=== PATIENT | male | born 1950 | race Caucasian/White ===

== ENCOUNTER 2017-11-13 20:55 | Emergency (ER) | payer BC ==
[2017-11-13] MEDS ORDERED: DIPRIVAN 200 MG/20 ML IV ONE (20:56)
[2017-11-13] MEDS: Sodium Chloride 0.9% 1000 ML 1,000 ML IV STA (21:00)
[2017-11-13] MEDS ORDERED: VERSED 5 MG/5 ML ONE ×2 (21:07→22:35)
[2017-11-13 21:10] LABS: BASOPHIL % 0.3 % (0.0-0.4); Basophil (Absolute #) 0.05 (0-0.4); Eosinophil (Absolute #) 0.59 (0-0.5); Granulocyte Absolute (ANC) 7.16 (1.4-6.9); Granulocytes % 49.1 % (36.0-66.0); Hematocrit 44.8 % (42-50); Hemoglobin 15.1 gm/dl (12.5-18.0); Lymphocyte (Absolute #) 5.82 (1.0-4.6); Lymphocytes % 39.9 % (24.0-44.0); Mean Cell Volume 100.7 fl (78-100); Mean Corpuscular Hemoglobin 33.9 pg (26-32); Mean Corpuscular Hgb Concent. 33.7 g/dl (32-36); Mean Platelet Volume 11.6 fl (6-9.5); Monocyte (Absolute #) 0.98 (0.0-1.3); Monocytes % 6.7 % (0.0-12.0); Platelet Count 150 K/mm3 (150-450); Red Blood Count 4.45 M/mm3 (4.1-5.6); Red Cell Distribution Width 13.1 % (11.5-14.0); White Blood Count 14.6 K/mm3 (4.0-10.5)
[2017-11-13] MEDS ORDERED: Sodium Chloride 0.9% 1000 ML 1,000 ML ONE ×3 (21:16→21:51)
[2017-11-13] MEDS ORDERED: SUBLIMAZE 100 MCG/2 ML ONE (21:22)
[2017-11-13] MEDS: SUBLIMAZE 100 MCG/2 ML IV ONE (21:25)
[2017-11-13] MEDS: VERSED 5 MG/5 ML IV ONE ×2 (21:30→22:45)
[2017-11-13] MEDS: Propofol 1000 mg/100 ml Bottle 100 ML IV PRN (21:40)
[2017-11-13 21:42] LABS: A-aADO2 220; ABG HEMOGLOBIN 13.9; ABG POTASSIUM 3.4 (3.5-5.1); ARTERIAL BLD GAS O2 SATURATION 100.1 % (95-100); ARTERIAL BLOOD GAS BASE EXCESS -6.8 (-2.0-2.0); ARTERIAL BLOOD GAS FIO2 100 %; ARTERIAL BLOOD GAS PCO2 54 mmHg (35-45); ARTERIAL BLOOD GAS PO2 426 mmHg (75-100); ARTERIAL BLOOD GAS VENT MODE A/C; ARTERIAL BLOOD GAS pH 7.21 (7.35-7.45); HCO3- 21.6 (22-28); HGB O2 SAT 92.6 g/dF (94-100); Methhemoglobin 1.5 % (1.4-1.5); paO2 pAO1 0.66
[2017-11-13 21:43] LABS: ABG SITE LEFT RADIAL; ALLEN TEST OK? YES
[2017-11-13 21:46] LABS: Lactic Acid 3.8 (0.4-2.0)
[2017-11-13 21:57] LABS: INR 0.98 (0.8-3.0)
[2017-11-13 22:06] LABS: ALBUMIN 3.6 g/dL (3.5-5.0); ALKALINE PHOSPHATASE 68 U/L (38-126); ANION GAP 17.4 MEQ/L (5-15); BLOOD UREA NITROGEN 17 mg/dL (9-20); CHLORIDE 105 mmol/L (98-107); CK-Creatinine Phosphokinase 70 U/L (55-170); Calcium 7.9 mg/dL (8.4-10.2); Carbon Dioxide 22 mmol/L (22-30); Creatinine 1 0.65 mg/dL (0.66-1.25); Glucose 141 mg/dL (74-106); Potassium 3.6 mmol/L (3.5-5.1); SGOT/AST 69 U/L (17-59); SGPT/ALT 54 U/L (0-50); SODIUM 141 mmol/L (137-145); Total Protein 5.9 g/dL (6.3-8.2)
--- NOTE | 2017-11-13 22:26 | ERPHSYRPT ---
- History of Present Illness Time Seen by Provider: 11/13/17 21:00 Source: EMS Exam Limitations: clinical condition Physician History: 67 y/o male with history of seizure brought in by ambulance post cardiac arrest. Pt was in a restaurant when he choked on a piece of food, had tonic clonic seizure, passed out and become pulseless. CPR was performed and upon arrival by EMS, pulse was regained after tube placement. In the ER, patient, arrived moving all extremities and starting to wake up. Pt was started on propofol drip which has sedated the patient. The patient has remained hemodynamically stable and has not had any seizure activity. Timing/Duration: today Activities at Onset: other (eating food) Nitro Today/Relief: no nitro taken today Aspirin Treatment Today: no aspirin today Associated Symptoms: seizure - Review of Systems Constitutional: No Fever, No Chills Eyes: No Symptoms Ears, Nose, & Throat: No Symptoms Respiratory: No Cough, No Dyspnea Cardiac: Other (post cardiac arrest), No Chest Pain, No Edema, No Syncope Abdominal/Gastrointestinal: No Abdominal Pain, No Nausea, No Vomiting, No Diarrhea Genitourinary Symptoms: No Dysuria Musculoskeletal: No Back Pain, No Neck Pain Skin: No Rash Neurological: Seizure, No Dizziness, No Focal Weakness, No Sensory Changes Psychological: No Symptoms Endocrine: No Symptoms All Other Systems: Reviewed and Negative Significant Family History:  - Physical Exam General Appearance: alert, lethargy, other (sedated) Eye Exam: PERRL/EOMI, eyes nml inspection Ears, Nose, Throat Exam: normal ENT inspection, moist mucous membranes Neck Exam: normal inspection, non-tender, supple Respiratory Exam: normal breath sounds, No respiratory distress Cardiovascular Exam: regular rate/rhythm, normal heart sounds, tachycardia, No edema Gastrointestinal/Abdomen Exam: soft, No tenderness, No mass Back Exam: normal inspection, No CVA tenderness, No vertebral tenderness Extremity Exam: normal inspection, normal range of motion Neurologic Exam: other (sedated and no distress), No motor deficits Skin Exam: normal color, warm, dry Lymphatic Exam: No adenopathy - Course Nursing assessment & vital signs reviewed: Yes EKG Interpreted by Me: RATE, NORMAL AXIS, NORMAL INTERVALS, NORMAL QRS, NORMAL ST-T Ordered Tests: Active Orders 24 hr Category Date Time Status Catheter-[place] STAT Care 11/13/17 20:57 Active EKG-ER Only STAT Care 11/13/17 20:57 Active IV Insertion STAT Care 11/13/17 20:57 Active CHEST 1 VIEW (PORTABLE) Routine Exams 11/13/17 Ordered CHEST 1 VIEW (PORTABLE) Stat Exams 11/13/17 20:58 Taken ARTERIAL BLOOD GASES Urgent Lab 11/13/17 21:22 Completed BLOOD CULTURE Stat Lab 11/13/17 21:30 Received CBC W DIFF Stat Lab 11/13/17 19:00 Completed CK-Creatinine Phosphokinase Stat Lab 11/13/17 21:00 Completed CMP Stat Lab 11/13/17 21:00 Completed Lactic Acid Stat Lab 11/13/17 21:22 Results MAGNESIUM Stat Lab 11/13/17 21:00 Completed Manual Differential NC Stat Lab 11/13/17 19:00 Completed PROTIME WITH INR Stat Lab 11/13/17 21:30 Completed PTT Stat Lab 11/13/17 21:30 Completed TROPONIN Q3H Lab 11/13/17 21:00 Completed TROPONIN Q3H Lab 11/14/17 00:00 Ordered TROPONIN Q3H Lab 11/14/17 03:00 Ordered TROPONIN Q3H Lab 11/14/17 06:00 Ordered TROPONIN Q3H Lab 11/14/17 09:00 Ordered Medication Summary Generic Name Dose Route Start Last Admin Trade Name Freq PRN Reason Stop Dose Admin Propofol 100 mls @ 0 mls/hr 11/13/17 20:59 Propofol 1000 Mg/100 Ml Bottle IV 12/13/17 20:58 .Q0M PRN AGITATION Protocol 5 MCG/KG/MIN Midazolam HCl 50 mg/ Sodium 250 mls @ 10 mls/hr 11/13/17 22:49 Chloride IV 12/13/17 22:48 .Q24H PRN SEDATION Protocol 2 MG/HR Discontinued Medications Generic Name Dose Route Start Last Admin Trade Name Freq PRN Reason Stop Dose Admin Fentanyl Citrate 100 mcg 11/13/17 21:20 Sublimaze 100 Mcg/2 Ml IV 11/13/17 21:21 STAT ONE Fentanyl Citrate Confirm 11/13/17 21:22 Sublimaze 100 Mcg/2 Ml Administered 11/13/17 21:23 Dose 100 mcg .ROUTE .STK-MED ONE Sodium Chloride 1,000 mls @ 999 mls/hr 11/13/17 20:57 Sodium Chloride 0.9% 1000 Ml IV 11/13/17 21:57 .Q1H1M STA Sodium Chloride Confirm 11/13/17 21:16 Sodium Chloride 0.9% 1000 Ml Administered 11/13/17 21:17 Dose 1,000 mls @ ud .ROUTE .STK-MED ONE Sodium Chloride Confirm 11/13/17 21:49 Sodium Chloride 0.9% 1000 Ml Administered 11/13/17 21:50 Dose 1,000 mls @ ud .ROUTE .STK-MED ONE Sodium Chloride Confirm 11/13/17 21:51 Sodium Chloride 0.9% 1000 Ml Administered 11/13/17 21:52 Dose 1,000 mls @ ud .ROUTE .STK-MED ONE Sodium Chloride Confirm 11/13/17 22:48 Sodium Chloride 0.9% 250 Ml Administered 11/13/17 22:49 Dose 250 mls @ ud IV .STK-MED ONE Midazolam HCl 5 mg 11/13/17 21:04 Versed 5 Mg/5 Ml IV 11/13/17 21:05 STAT ONE Midazolam HCl Confirm 11/13/17 21:07 Versed 5 Mg/5 Ml Administered 11/13/17 21:08 Dose 5 mg .ROUTE .STK-MED ONE Midazolam HCl 5 mg 11/13/17 22:32 Versed 5 Mg/5 Ml IV 11/13/17 22:33 STAT ONE Midazolam HCl Confirm 11/13/17 22:35 Versed 5 Mg/5 Ml Administered 11/13/17 22:36 Dose 5 mg .ROUTE .STK-MED ONE Midazolam HCl Confirm 11/13/17 22:48 Versed 50 Mg/ 10 Ml Mdv Administered 11/13/17 22:49 Dose 50 mg .ROUTE .STK-MED ONE Lab/Rad Data: Laboratory Result Diagrams 11/13/17 19:00 11/13/17 21:00 Laboratory Results 11/13/17 11/13/17 11/13/17 Range/Units 21:30 21:30 21:22 WBC (4.0-10.5) K/mm3 RBC (4.1-5.6) M/mm3 Hgb (12.5-18.0) gm/dl Hct (42-50) % MCV (78-100) fl MCH (26-32) pg MCHC (32-36) g/dl RDW (11.5-14.0) % Plt Count (150-450) K/mm3 MPV (6-9.5) fl Gran % (36.0-66.0) % Eos # (Auto) (0-0.5) Absolute Lymphs (auto) (1.0-4.6) Absolute Monos (auto) (0.0-1.3) Lymphocytes % (24.0-44.0) % Monocytes % (0.0-12.0) % Eosinophils % (0.00-5.0) % Basophils % (0.0-0.4) % Absolute Granulocytes (1.4-6.9) Basophils # (0-0.4) PT 11.4 (8.83-12.87) SECONDS INR 0.98 (0.8-3.0) APTT 25.0 (24.1-36.1) SECONDS Puncture Site LEFT RADIAL pCO2 54 H (35-45) mmHg pO2 426 H* (75-100) mmHg Base Excess -6.8 L (-2.0-2.0) O2 Saturation 92.6 L (94-100) g/dF ABG pH 7.21 L* (7.35-7.45) ABG HCO3 21.6 L (22-28) ABG O2 Sat (Measured) 100.1 H (95-100) % Wilver Test YES A-a Gradient 220 a/A Ratio 0.66 Hemoglobin 13.9 Carboxyhemoglobin 6.0 (0.0-6.9) % THgb Methemoglobin 1.5 (1.4-1.5) % Temperature 37.0 C POC O2 Flow Rate 100 % Vent Mode A/C Sodium (137-145) mmol/L Potassium 3.4 L (3.5-5.1) mmol/L Chloride (98-107) mmol/L Carbon Dioxide (22-30) mmol/L Anion Gap (5-15) MEQ/L BUN (9-20) mg/dL Creatinine (0.66-1.25) mg/dL Estimated GFR ML/MIN Glucose (74-106) mg/dL Lactic Acid (0.4-2.0) Calcium (8.4-10.2) mg/dL Magnesium (1.6-2.3) mg/dL Total Bilirubin (0.2-1.3) mg/dL AST (17-59) U/L ALT (0-50) U/L Alkaline Phosphatase (38-126) U/L Creatine Kinase (55-170) U/L Troponin I (0.000-0.034) ng/mL Serum Total Protein (6.3-8.2) g/dL Albumin (3.5-5.0) g/dL Phenytoin < 3.0 L (10-20) ug/mL 11/13/17 11/13/17 11/13/17 Range/Units 21:22 21:00 21:00 WBC (4.0-10.5) K/mm3 RBC (4.1-5.6) M/mm3 Hgb (12.5-18.0) gm/dl Hct (42-50) % MCV (78-100) fl MCH (26-32) pg MCHC (32-36) g/dl RDW (11.5-14.0) % Plt Count (150-450) K/mm3 MPV (6-9.5) fl Gran % (36.0-66.0) % Eos # (Auto) (0-0.5) Absolute Lymphs (auto) (1.0-4.6) Absolute Monos (auto) (0.0-1.3) Lymphocytes % (24.0-44.0) % Monocytes % (0.0-12.0) % Eosinophils % (0.00-5.0) % Basophils % (0.0-0.4) % Absolute Granulocytes (1.4-6.9) Basophils # (0-0.4) PT (8.83-12.87) SECONDS INR (0.8-3.0) APTT (24.1-36.1) SECONDS Puncture Site pCO2 (35-45) mmHg pO2 (75-100) mmHg Base Excess (-2.0-2.0) O2 Saturation (94-100) g/dF ABG pH (7.35-7.45) ABG HCO3 (22-28) ABG O2 Sat (Measured) (95-100) % Wilver Test A-a Gradient a/A Ratio Hemoglobin Carboxyhemoglobin (0.0-6.9) % THgb Methemoglobin (1.4-1.5) % Temperature C POC O2 Flow Rate % Vent Mode Sodium 141 (137-145) mmol/L Potassium 3.6 (3.5-5.1) mmol/L Chloride 105 (98-107) mmol/L Carbon Dioxide 22 (22-30) mmol/L Anion Gap 17.4 H (5-15) MEQ/L BUN 17 (9-20) mg/dL Creatinine 0.65 L (0.66-1.25) mg/dL Estimated GFR > 60.0 ML/MIN Glucose 141 H (74-106) mg/dL Lactic Acid 3.8 H (0.4-2.0) Calcium 7.9 L (8.4-10.2) mg/dL Magnesium 1.9 (1.6-2.3) mg/dL Total Bilirubin 0.20 (0.2-1.3) mg/dL AST 69 H (17-59) U/L ALT 54 H (0-50) U/L Alkaline Phosphatase 68 (38-126) U/L Creatine Kinase 70 (55-170) U/L Troponin I 0.014 (0.000-0.034) ng/mL Serum Total Protein 5.9 L (6.3-8.2) g/dL Albumin 3.6 (3.5-5.0) g/dL Phenytoin (10-20) ug/mL 11/13/17 Range/Units 19:00 WBC 14.6 H (4.0-10.5) K/mm3 RBC 4.45 (4.1-5.6) M/mm3 Hgb 15.1 (12.5-18.0) gm/dl Hct 44.8 (42-50) % MCV 100.7 H (78-100) fl MCH 33.9 H (26-32) pg MCHC 33.7 (32-36) g/dl RDW 13.1 (11.5-14.0) % Plt Count 150 (150-450) K/mm3 MPV 11.6 H (6-9.5) fl Gran % 49.1 (36.0-66.0) % Eos # (Auto) 0.59 H (0-0.5) Absolute Lymphs (auto) 5.82 H (1.0-4.6) Absolute Monos (auto) 0.98 (0.0-1.3) Lymphocytes % 39.9 (24.0-44.0) % Monocytes % 6.7 (0.0-12.0) % Eosinophils % 4.0 (0.00-5.0) % Basophils % 0.3 (0.0-0.4) % Absolute Granulocytes 7.16 H (1.4-6.9) Basophils # 0.05 (0-0.4) PT (8.83-12.87) SECONDS INR (0.8-3.0) APTT (24.1-36.1) SECONDS Puncture Site pCO2 (35-45) mmHg pO2 (75-100) mmHg Base Excess (-2.0-2.0) O2 Saturation (94-100) g/dF ABG pH (7.35-7.45) ABG HCO3 (22-28) ABG O2 Sat (Measured) (95-100) % Wilver Test A-a Gradient a/A Ratio Hemoglobin Carboxyhemoglobin (0.0-6.9) % THgb Methemoglobin (1.4-1.5) % Temperature C POC O2 Flow Rate % Vent Mode Sodium (137-145) mmol/L Potassium (3.5-5.1) mmol/L Chloride (98-107) mmol/L Carbon Dioxide (22-30) mmol/L Anion Gap (5-15) MEQ/L BUN (9-20) mg/dL Creatinine (0.66-1.25) mg/dL Estimated GFR ML/MIN Glucose (74-106) mg/dL Lactic Acid (0.4-2.0) Calcium (8.4-10.2) mg/dL Magnesium (1.6-2.3) mg/dL Total Bilirubin (0.2-1.3) mg/dL AST (17-59) U/L ALT (0-50) U/L Alkaline Phosphatase (38-126) U/L Creatine Kinase (55-170) U/L Troponin I (0.000-0.034) ng/mL Serum Total Protein (6.3-8.2) g/dL Albumin (3.5-5.0) g/dL Phenytoin (10-20) ug/mL - Progress Progress: improved Progress Note: 11/13/17 22:26 Pt has been sedated with propofol drip. The blood gas shows a pH of 7.21 with a pO2 of 426. The FiO2 was reduced from 100% to 60%. The patient has remained and is ready for transfer. The patient has been accepted by hospitalist, Dr You and will go to the ER. 11/13/17 22:59 Just found out that the patient was taken off of coumadin for a DVT. Pt has a dilantin level that is subtherapeutic. Pt will be loaded with 1 gram of dilantin prior to being discharged. Pt was also started on versed drip along with the propofol drip. - Departure Time of Disposition: 22:29 Departure Disposition: Transfer Clinical Impression: Cardiac arrest, Seizure Choking due to food (regurgitated) Qualifiers: Encounter type: initial encounter Qualified Code(s): T17.320A - Food in larynx causing asphyxiation, initial encounter Condition: Critical Critical Care Time: Yes Critical Care Time(excluding separately billable procedures): 75-104 minutes Referrals: WILIAM GAXIOLA [Primary Care Provider] -
[2017-11-13] MEDS ORDERED: Sodium Chloride 0.9% 250 ML 250 ML IV ONE (22:48)
[2017-11-13] MEDS ORDERED: Versed 50 MG/ 10 Ml MDV ONE (22:48)
[2017-11-13] MEDS: Versed 50 MG/ 10 Ml MDV*** 50 MG in Sodium Chloride 0.9% 250 ML 240 ML IV PRN (22:58)
[2017-11-13] MEDS ORDERED: DILANTIN IV 250 MG/5 ML ONE (23:02)
[2017-11-13] MEDS ORDERED: Sodium Chloride 0.9% 100 ML IVPB 100 ML IV ONE (23:08)
[2017-11-13] MEDS ORDERED: cereBYX 50 MG/ML ONE (23:09)
[2017-11-13] MEDS: cereBYX 50 MG/ML*** 1,000 MG in Sodium Chloride 0.9% 100 ML IVPB 100 ML IV ONE (23:10)
[2017-11-13 23:50] LABS: BAND 1 % (0.0-2.0); Eosinophil 3 % (0.00-3.0); Lymphocytes 35 % (24-44); Monocyte 5 % (0.0-12.0); Neutrophils 56 % (36.-66.); Platelet Estimate NORMAL (NORMAL); Total Cells Counted 100
[2017-11-14] MEDS: DILANTIN IV 250 MG/5 ML*** 1,000 MG in Sodium Chloride 0.9% 100 ML IVPB 100 ML IV ONE (02:19)
[2017-11-14 02:30] VITALS: PULSE 106
[2017-11-14 02:36] VITALS: BP 138/84; O2SAT 99
--- NOTE | 2017-11-14 09:20 | XRAY ---
Indication: OG tube placement. Comparison: Taken earlier in the day. Portable chest demonstrates new OG tube traversing the chest with the tip presumed in the stomach. Endotracheal tube tip now 8 cm above the carmelita. Remaining chest unchanged.
--- NOTE | 2017-11-14 09:20 | XRAY ---
Indication: Post cardiac arrest. Intubation. Comparison: July 04, 2011. Portable chest demonstrates new endotracheal tube tip 7 cm above the carmelita. Lungs remain hyperinflated and clear. Heart and mediastinal structures within normal limits. Bony thorax intact again with mild degenerative changes and old right clavicle fracture. Impression: 1. Endotracheal tube tip 7 cm above the carmelita. 2. Stable COPD without new/acute cardiopulmonary findings.
== END 2017-11-13 23:25 | disposition short-term general hospital (02) ==
LOC: ED 20:55
DX: I46.9 Cardiac arrest, cause unspecified (principal); R56.9 Unspecified convulsions; T17.320A Food in larynx causing asphyxiation, initial encounter; Z86.718 Personal history of other venous thrombosis and embolism; Z79.01 Long term (current) use of anticoagulants; Z79.1 Long term (current) use of non-steroidal anti-inflammatories (NSAID); R89.2 Abnormal level of other drugs, medicaments and biological substances in specimens from other organs, systems and tissues; Z79.899 Other long term (current) drug therapy
CPT/HCPCS: 36000; 36415; 36600; 51702; 71045; 80053; 80185; 82375; 82550; 82803; 83605; 83735; 84484; 85025; 85610; 85730; 87040; 93005; 94002; 94250; 94770; 96360; 96361; 96365; 96367; 96374; 96375; 96376; 99285; 99291; 99292; J1165; J2250; J2704; J3010; Q2009

== ENCOUNTER 2022-08-26 07:22 | Emergency (ER) | payer MEDICARE, BC ==
[2022-08-26] MEDS ORDERED: DUONEB 0.5-3 MG/3 ml Neb IH ONE ×2 (07:35→07:58)
[2022-08-26] MEDS ORDERED: Sodium Chloride 0.9% 1000 ML 1,000 ML IV SCH (07:45)
[2022-08-26] MEDS ORDERED: Sodium Chloride 0.9% 1000 ML 1,000 ML ONE (07:52)
--- NOTE | 2022-08-26 07:54 | ERPHSYRPT ---
- History of Present Illness Time Seen by Provider: 08/26/22 07:35 Source: patient Exam Limitations: no limitations Patient Subjective Stated Complaint: C/O SOB for about a week. He states that he mowed last week when it was dry and maryanne without a mask on and thinks it has caused him to have a cough and become SOB. Patient was in cardiac rehab sating 84% on room air so the staff at cardiac rehab encouraged patient to be checked out in the ER. Triage Nursing Assessment: Patient brought back to ER in a W/C. He is SOB; sating 86% on room air. 02 @ 2L applied and 02 sats increased to 92%. He is pale. Cool to touch. Patient is able to transfer self from chair to bed. He is alert and oriented. A moist, non-productive cough is present at this time. Rhales noted in lung bases. Physician History: Patient is a 72-year-old white male with a history of COPD who is on home O2 at night 2 L. He presents with a report of being in cardiac rehab a couple of times over the last week where his O2 sat on room air was in the 80s. Today he was noted to be 84% on room air and he was encouraged to come to the ER and her finally agreed. He says he was mowing last week and since that time has been sick with a cough fever chills he says it was quite maryanne and he thinks that caused his respiratory distress. Timing/Duration: week(s) (1) Activities at Onset: other (Mowing grass) Severity of Dyspnea-Max: moderate Severity of Dyspnea-Current: moderate Possible Cause: frequent episodes Modifying Factors: Improves With: albuterol nebulizer, coughing, exertion Associated Symptoms: cough, fever, wheezing, chills Allergies/Adverse Reactions: No Known Drug Allergies Allergy (Verified 08/26/22 07:24) Home Medications: Albuterol Sulfate [Albuterol Sulfate Hfa] 2 puff PO Q4H PRN PRN 08/26/22 [H istory] Apixaban [Eliquis] 1 tab PO BID 08/26/22 [History] Aspirin EC 81 mg [Ecotrin 81 mg] 1 tab PO DAILY 08/26/22 [History] Atorvastatin Calcium [Lipitor] 1 tab PO HS 08/26/22 [History] Empagliflozin [Jardiance] 1 tab PO DAILY 08/26/22 [History] Ezetimibe 10 mg [Zetia 10 MG] 1 tab PO DAILY 08/26/22 [History] Fluticasone/Vilanterol [Fluticasone-Vilanterol 200-25] 1 puff PO DAILY 08/26/22 [History] Furosemide 40 mg [Lasix 40 MG] 1 tab PO DAILY PRN 08/26/22 [History] Ipratropium/Albuterol Sulfate [Iprat-Albut 0.5-3(2.5) mg/3 ml] 1 vial PO QID 08/26/22 [History] Mexiletine HCl 1 cap PO TID 08/26/22 [History] Phenytoin Sodium Extended [Dilantin] 1 tab PO QID 08/26/22 [History] Sacubitril/Valsartan [Entresto 49 mg-51 mg Tablet] 1 tab PO BID 08/26/22 [History] carvediloL [Carvedilol] 1 tab PO BID 08/26/22 [History] Hx Tetanus, Diphtheria Vaccination/Date Given: Yes Hx Influenza Vaccination/Date Given: Yes Hx Pneumococcal Vaccination/Date Given: Yes Immunizations Up to Date: Yes Travel Risk - International Travel Have you traveled outside of the country in past 3 weeks: No - Coronavirus Screening Are you exhibiting any of the following symptoms?: Yes Symptoms: Fever, Cough: New Onset, Shortness of Breath Close contact with a COVID-19 positive Pt in past 14-21 Days: No - Vaccine Status Have you recieved a Covid-19 vaccination: Yes [employer]: [facility] - Vaccination Dates Date of 2cond Vaccination (if applicable): ? 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 - Past Surgical History Past Surgical History: Yes Cardiac: CABG, Cardiac Catheterization, Internal Defibrillator, Pacemaker Gastrointestinal: No Pertinent History Genitourinary: No Pertinent History Musculoskeletal: No Pertinent History Male Surgical History: No Pertinent History - Social History Smoking Status: Former smoker Exposure to second hand smoke: No Drug Use: none Patient Lives Alone: No Significant Family History:  - Nursing Vital Signs Nursing Vital Signs: Initial Vital Signs Temperature 97.4 F 08/26/22 07:35 Pulse Rate 76 08/26/22 07:35 Respiratory Rate 26 H 08/26/22 07:35 Blood Pressure 101/69 08/26/22 07:35 O2 Sat by Pulse Oximetry 92 L 08/26/22 07:35 Pain Scale Pain Intensity 0 - Physical Exam General Appearance: mild distress, alert Eye Exam: PERRL/EOMI Ears, Nose, Throat Exam: hearing grossly normal, normal ENT inspection Neck Exam: normal inspection, supple Respiratory Exam: respiratory distress (Mild), airway intact, diminished breath sounds, crackles/rales, wheezing Cardiovascular/Chest Exam: normal heart sounds, regular rate/rhythm Abdominal/Gastrointestinal Exam: soft, No tenderness, No distention, No mass Extremity Exam: non-tender, normal range of motion, normal inspection, no calf tenderness, no pedal edema Neurologic Exam: alert, oriented x 3, cooperative, dealer account manager II-XII nml as tested, sensation nml, No motor deficits Skin Exam: normal color, warm, No dry SpO2 Interpretation: hypoxic, O2 applied SpO2: 94 O2 Delivery: Nasal Cannula - Course Nursing assessment & vital signs reviewed: Yes EKG Interpreted by Me: RATE (76), Sinus Rhythm, Right Stella Deviation, NORMAL INTERVALS, NORMAL QRS, Non-specific ST Changes - Radiology Exams Chest X-ray Interpretation: Reviewed by me Ordered Tests: Active Orders 24 hr Category Date Time Status EKG-ER Only STAT Care 08/26/22 07:35 Active IV Insertion STAT Care 08/26/22 07:35 Active Oxygen-ED Only Nasal Cannula 2 lpm Care 08/26/22 07:35 Active Pulse Oximetry (ED) STAT Care 08/26/22 07:35 Active CHEST 1 VIEW (PORTABLE) Stat Exams 08/26/22 08:02 Completed BLOOD CULTURE Stat Lab 08/26/22 07:45 Received CBC W DIFF Stat Lab 08/26/22 07:35 Completed CMP Stat Lab 08/26/22 07:58 Completed D-DIMER QUANTITATIVE Stat Lab 08/26/22 07:58 Completed Lactic Acid Stat Lab 08/26/22 07:58 Received MAGNESIUM Stat Lab 08/26/22 07:58 Completed NT PRO BNPII Stat Lab 08/26/22 07:58 Completed TROPONIN Q4H Lab 08/26/22 07:58 Completed TROPONIN Q4H Lab 08/26/22 11:45 Ordered TROPONIN Q4H Lab 08/26/22 15:45 Ordered UA W/RFX UR CULTURE Stat Lab 08/26/22 07:35 Ordered BiPap/CPAP STAT RT 08/26/22 07:35 Active Medication Summary Generic Name Dose Route Start Last Admin Trade Name Freq PRN Reason Stop Dose Admin Sodium Chloride 1,000 mls @ 50 mls/hr 08/26/22 07:45 08/26/22 07:53 Sodium Chloride 0.9% 1000 Ml IV 09/25/22 07:44 50 mls/hr .Q20H CRYSTAL Administration Ceftriaxone Sodium/Dextrose 1 g in 50 mls @ 100 mls/hr 08/26/22 09:19 Rocephin 1 Gm-D5w 50 Ml Bag IV 08/26/22 09:48 STAT STA Azithromycin 500 mg in 250 mls @ 250 mls/hr 08/26/22 09:19 Zithromax 500 Mg/ 250 Ml Nacl Premix IV 08/26/22 10:18 STAT ONE Discontinued Medications Generic Name Dose Route Start Last Admin Trade Name Freq PRN Reason Stop Dose Admin Albuterol/Ipratropium 3 ml 08/26/22 07:35 08/26/22 08:01 Ipratropium/Albuterol Sulfate 3 Ml Ampul.Neb IH 08/26/22 07:36 3 ml STAT ONE Administration Albuterol/Ipratropium Confirm 08/26/22 07:58 Ipratropium/Albuterol Sulfate 3 Ml Ampul.Neb Administered 08/26/22 07:59 Dose 3 ml IH .STK-MED ONE Methylprednisolone Sodium 0 mg 08/26/22 09:21 Succinate 125 mg/ Sterile IV 08/26/22 09:22 Water 2 ml STAT ONE Lab/Rad Data: Laboratory Result Diagrams 08/26/22 07:35 08/26/22 07:58 Laboratory Results 08/26/22 08/26/22 08/26/22 Range/Units 07:58 07:58 07:58 WBC (4.0-10.5) x10^3/uL RBC (4.1-5.6) x10^6/uL Hgb (12.5-18.0) g/dL Hct (42-50) % MCV (78-100) fL MCH (26-32) pg MCHC (32-36) g/dL RDW (11.5-14.0) % Plt Count (150-450) x10^3/uL MPV (7.5-11.0) fL Gran % (36.0-66.0) % Immature Gran % (Auto) (0.00-0.4) % Nucleat RBC Rel Count (0.00-0.1) % Eos # (Auto) (0-0.5) x10^3/uL Immature Gran # (Auto) (0.00-0.03) x10^3u/L Absolute Lymphs (auto) (1.0-4.6) x10^3/uL Absolute Monos (auto) (0.0-1.3) x10^3/uL Absolute Nucleated RBC (0.00-0.01) x10^3u/L Lymphocytes % (24.0-44.0) % Monocytes % (0.0-12.0) % Eosinophils % (0.00-5.0) % Basophils % (0.0-0.4) % Absolute Granulocytes (1.4-6.9) x10^3/uL Basophils # (0-0.4) x10^3/uL D-Dimer (0.0-0.50) mg/L Sodium (137-145) mmol/L Potassium (3.5-5.1) mmol/L Chloride (98-107) mmol/L Carbon Dioxide (22-30) mmol/L Anion Gap (5-15) MEQ/L BUN (9-20) mg/dL Creatinine (0.66-1.25) mg/dL Estimated GFR ML/MIN Glucose (74-106) mg/dL Calcium (8.4-10.2) mg/dL Magnesium (1.6-2.3) mg/dL Total Bilirubin (0.2-1.3) mg/dL AST (17-59) U/L ALT (0-50) U/L Alkaline Phosphatase (38-126) U/L Troponin I < 0.012 (0.000-0.034) ng/mL NT-Pro-B Natriuret Pep 214 (<300) pg/mL Serum Total Protein (6.3-8.2) g/dL Albumin (3.5-5.0) g/dL Influenza Type A Ag NEGATIVE (NEGATIVE) Influenza Type B Ag NEGATIVE (NEGATIVE) RSV (PCR) NEGATIVE (NEGATIVE) SARS-CoV-2 (PCR) NEGATIVE (NEGATIVE) 08/26/22 08/26/22 08/26/22 Range/Units 07:58 07:58 07:35 WBC 6.5 (4.0-10.5) x10^3/uL RBC 4.55 (4.1-5.6) x10^6/uL Hgb 14.5 (12.5-18.0) g/dL Hct 44.4 (42-50) % MCV 97.6 (78-100) fL MCH 31.9 (26-32) pg MCHC 32.7 (32-36) g/dL RDW 13.4 (11.5-14.0) % Plt Count 149 L (150-450) x10^3/uL MPV 11.9 H (7.5-11.0) fL Gran % 61.1 (36.0-66.0) % Immature Gran % (Auto) 0.2 (0.00-0.4) % Nucleat RBC Rel Count 0.0 (0.00-0.1) % Eos # (Auto) 0.11 (0-0.5) x10^3/uL Immature Gran # (Auto) 0.01 (0.00-0.03) x10^3u/L Absolute Lymphs (auto) 1.73 (1.0-4.6) x10^3/uL Absolute Monos (auto) 0.64 (0.0-1.3) x10^3/uL Absolute Nucleated RBC 0.00 (0.00-0.01) x10^3u/L Lymphocytes % 26.6 (24.0-44.0) % Monocytes % 9.8 (0.0-12.0) % Eosinophils % 1.7 (0.00-5.0) % Basophils % 0.6 (0.0-0.4) % Absolute Granulocytes 3.97 (1.4-6.9) x10^3/uL Basophils # 0.04 (0-0.4) x10^3/uL D-Dimer 0.41 (0.0-0.50) mg/L Sodium 137 (137-145) mmol/L Potassium 4.4 (3.5-5.1) mmol/L Chloride 99 (98-107) mmol/L Carbon Dioxide 31 H (22-30) mmol/L Anion Gap 11.8 (5-15) MEQ/L BUN 12 (9-20) mg/dL Creatinine 0.51 L (0.66-1.25) mg/dL Estimated GFR > 60.0 ML/MIN Glucose 150 H (74-106) mg/dL Calcium 8.4 (8.4-10.2) mg/dL Magnesium 2.2 (1.6-2.3) mg/dL Total Bilirubin 0.50 (0.2-1.3) mg/dL AST 35 (17-59) U/L ALT 31 (0-50) U/L Alkaline Phosphatase 91 (38-126) U/L Troponin I (0.000-0.034) ng/mL NT-Pro-B Natriuret Pep (<300) pg/mL Serum Total Protein 7.0 (6.3-8.2) g/dL Albumin 3.6 (3.5-5.0) g/dL Influenza Type A Ag (NEGATIVE) Influenza Type B Ag (NEGATIVE) RSV (PCR) (NEGATIVE) SARS-CoV-2 (PCR) (NEGATIVE) - Progress Progress: improved Air Movement: fair Progress Note: 08/26/22 09:25 Because of his hypoxia and his dyspnea we were going to admit Mr. Sanabria to the hospital however he refuses he needs to go home to help his care for his 89-year-old [id number]. He did agree to IV antibiotic doses initially here along with IV steroids. He is alert and oriented and knows the problems he might face by going home and I did not feel it was necessary to demand that he signed an AMA release. Blood Culture(s) Obtained: Yes Antibiotics given: Yes Medical Desision Making - Diagnostic Testing Diagnostic test were ordered, analyzed, and reviewed by me: Yes Radiological Interpretation: Reviewed by me - Risk of complications The pt has a mod risk of morbidity or mortality based on: Need for prescription drug management - Departure Departure Disposition: Home Clinical Impression: COPD exacerbation Condition: Fair Critical Care Time: No Referrals: BETTY BURNS [Primary Care Provider] - Follow up/PCP as directed Instructions: Chronic Obstructive Pulmonary Disease, Exacerbation of COPD (DC) Prescriptions: Prednisone 10 mg [Deltasone 10 mg] 2 mg PO TID 3 Days #18 tablet Cephalexin Mh 500 mg [Keflex 500 mg] 500 mg PO TID #21 cap
[2022-08-26 08:05] LABS: Absolute Neutrophil Ct (ANC) 3.97 x10^3/uL (1.4-6.9); BASOPHIL % 0.6 % (0.0-0.4); Basophil (Absolute #) 0.04 x10^3/uL (0-0.4); Eosinophil % 1.7 % (0.00-5.0); Eosinophil (Absolute #) 0.11 x10^3/uL (0-0.5); Hematocrit 44.4 % (42-50); Hemoglobin 14.5 g/dL (12.5-18.0); IMMATURE GRAN # 0.01 x10^3u/L (0.00-0.03); IMMATURE GRAN % 0.2 % (0.00-0.4); Lymphocyte (Absolute #) 1.73 x10^3/uL (1.0-4.6); Lymphocytes % 26.6 % (24.0-44.0); Mean Cell Volume 97.6 fL (78-100); Mean Corpuscular Hemoglobin 31.9 pg (26-32); Mean Corpuscular Hgb Concent. 32.7 g/dL (32-36); Mean Platelet Volume 11.9 fL (7.5-11.0); Monocyte (Absolute #) 0.64 x10^3/uL (0.0-1.3); Monocytes % 9.8 % (0.0-12.0); Neutrophil % 61.1 % (36.0-66.0); Platelet Count 149 x10^3/uL (150-450); Red Blood Count 4.55 x10^6/uL (4.1-5.6); Red Cell Distribution Width 13.4 % (11.5-14.0); White Blood Count 6.5 x10^3/uL (4.0-10.5)
[2022-08-26 08:17] LABS: ALBUMIN 3.6 g/dL (3.5-5.0); ALKALINE PHOSPHATASE 91 U/L (38-126); ANION GAP 11.8 MEQ/L (5-15); BLOOD UREA NITROGEN 12 mg/dL (9-20); CHLORIDE 99 mmol/L (98-107); Calcium 8.4 mg/dL (8.4-10.2); Carbon Dioxide 31 mmol/L (22-30); Creatinine 1 0.51 mg/dL (0.66-1.25); EST GLOMERULAR FILTRATION RATE > 60.0 ML/MIN; Glucose 150 mg/dL (74-106); MAGNESIUM 2.2 mg/dL (1.6-2.3); Potassium 4.4 mmol/L (3.5-5.1); SGOT/AST 35 U/L (17-59); SGPT/ALT 31 U/L (0-50); SODIUM 137 mmol/L (137-145)
--- NOTE | 2022-08-26 08:44 | XRAY ---
Indication: Short of breath. Comparison: November 13, 2017 Portable chest again hyperinflated and clear. Heart not enlarged with new CABG and new left single lead pacemaker. Bony thorax intact again with mild degenerative changes. Impression: Nonacute hyperinflated chest with chronic features.
[2022-08-26 08:48] LABS: INFLUENZA A NEGATIVE (NEGATIVE); INFLUENZA B NEGATIVE (NEGATIVE); RESPIRATORY SYNCTIAL VIRUS NEGATIVE (NEGATIVE); SARS-CoV-2 Xpert Express NEGATIVE (NEGATIVE)
[2022-08-26] MEDS ORDERED: Zithromax 500 MG/ 250 ML NaCl Premix 500 MG/250 ML IVPB IV ONE (09:19)
[2022-08-26] MEDS ORDERED: ROCEPHIN 1 Gm-D5w 50 ml Bag** 1 G/50 ML IVPB IV STA (09:19)
[2022-08-26] MEDS ORDERED: solu-MEDROL 125 MG, Sterile H2O 10 ml 2 ML IV ONE ×2 (09:21)
[2022-08-26 09:29] VITALS: O2SAT 94
[2022-08-26] MEDS ORDERED: solu-MEDROL ONE (09:33)
[2022-08-26] MEDS ORDERED: ROCEPHIN 1 Gm-D5w 50 ml Bag** 1 G/50 ML IVPB IV ONE (09:33)
[2022-08-26] MEDS ORDERED: Sterile H2O 10 ml IJ ONE (09:33)
[2022-08-26 10:08] VITALS: BP 112/66; PULSE 69
== END 2022-08-26 10:14 | disposition home or self-care (01) ==
LOC: ED 07:22
DX: J44.1 Chronic obstructive pulmonary disease with (acute) exacerbation (principal); R09.02 Hypoxemia; R05.9 Cough, unspecified; E78.5 Hyperlipidemia, unspecified; I10 Essential (primary) hypertension; Z79.01 Long term (current) use of anticoagulants; Z79.84 Long term (current) use of oral hypoglycemic drugs; Z79.899 Other long term (current) drug therapy; Z20.828 Contact with and (suspected) exposure to other viral communicable diseases
CPT/HCPCS: 0241U; 36000; 36415; 71045; 80053; 83605; 83735; 83880; 84484; 85025; 85379; 87040; 93005; 94640; 94760; 96365; 96374; 99284; J0696; J2930; A9270-GY